=== PATIENT | male | born 1965 | race African-American/Black ===

== ENCOUNTER 2016-10-17 08:05 | Emergency (ER) | payer OTHER ==
[~2016-10-17] VITALS: Ht 177.8 cm; Wt 81.7 kg
[2016-10-17 08:11] VITALS: BP 125/95
[2016-10-17 08:29] LABS: ABSOLUTE NEUTROPHILS 3.2 thou/uL (1.4-8.2); BASOPHILS 0.4 % (0.0-2.0); EOSINOPHILS 2.3 % (0.0-3.0); HEMATOCRIT 46.9 % (42.0-52.0); HEMOGLOBIN 15.8 gm/dL (14.0-18.0); LYMPHOCYTES 40.3 % (24.0-44.0); MCH 27.7 pg (26.0-34.0); MCHC 33.6 g/dL (28.0-37.0); MCV 82.4 fL (80.0-100.0); MONOCYTES 7.7 % (1.0-8.0); PLATELET COUNT 190 thou/uL (150-400); POLYS 49.3 % (36.0-66.0); RBC 5.69 mil/uL (4.50-6.00); RDW 13.6 % (10.5-14.5); WBC 6.4 thou/uL (4.0-11.0)
[2016-10-17 08:32] LABS: MANUAL DIFF NO
[2016-10-17 08:38] LABS: CALCIUM 9.3 mg/dL (8.5-10.1)
== END 2016-10-17 09:01 | disposition home or self-care (01) ==
LOC: ER 08:05
PROVIDERS: Emergency Medicine
DX: M62.838 Other muscle spasm (principal)

== ENCOUNTER 2018-03-06 14:01 | Emergency (ER) | payer OTHER ==
[~2018-03-06] VITALS: Ht 180.3 cm; Wt 81.7 kg
--- NOTE | ~2018-03-06 | EKG ---
[address] [address] ELECTROCARDIOGRAM REPORT Name: DENISHA KUO Room #: DEP KERMIT Allen#: [id number] Admission: 03/06/18 Attend Phys: Discharge: 03/06/18 Date of : 69 Report #: [id number] THIS REPORT FOR: //name// [facility] ED Test Date: 2018-03-06 Test Time: 14:35:14 Pat Name: DENISHA KUO Department: Room: Gender: M [employer] Driver: ELIZABETH : 1965 Requested By: Live Raza Order Number: [id number] MD: Magno Rudolph Measurements Intervals Wilson Rate: 54 P: 60 CO: 192 QRS: 43 QRSD: 86 T: 41 QT: 423 QTc: 401 Interpretive Statements Sinus rhythm No previous ECG available for comparison Electronically Signed On 03-06-2018 23:11:17 CDT by Magno Rudolph [email or web address] <ELECTRONICALLY SIGNED> By: Magno Rudolph MD 03/06/18 2311 1435 1435 Magno Rudolph MD /DANIEL
[2018-03-06 14:37] LABS: ABSOLUTE NEUTROPHILS 3.3 thou/uL (1.4-8.2); BASOPHILS 0.4 % (0.0-2.0); EOSINOPHILS 1.2 % (0.0-3.0); HEMATOCRIT 45.4 % (42.0-52.0); HEMOGLOBIN 15.6 gm/dL (14.0-18.0); LYMPHOCYTES 43.6 % (24.0-44.0); MCH 28.3 pg (26.0-34.0); MCHC 34.4 g/dL (28.0-37.0); MCV 82.3 fL (80.0-100.0); MONOCYTES 8.5 % (1.0-8.0); PLATELET COUNT 196 thou/uL (150-400); POLYS 46.3 % (36.0-66.0); RBC 5.52 mil/uL (4.50-6.00); RDW 13.8 % (10.5-14.5); WBC 7.2 thou/uL (4.0-11.0)
[2018-03-06 14:40] LABS: ANION GAP 6 mmol/L (7-16); BUN 19 mg/dL (7-18); CALCIUM 9.4 mg/dL (8.5-10.1); CHLORIDE 103 mmol/L (98-107); CO2 27 mmol/L (21-32); CREATININE 1.1 mg/dL (0.7-1.3); GLUCOSE 95 mg/dL (74-106); SODIUM 136 mmol/L (136-145)
[2018-03-06 14:49] LABS: ALBUMIN 3.7 g/dL (3.4-5.0); LIPASE 92 U/L (73-393); SGOT 22 U/L (15-37); SGPT 33 U/L (30-65); TOTAL BILIRUBIN 0.7 mg/dL (<0.1-1.0); TOTAL PROTEIN 7.9 g/dL (6.4-8.2); TROPONIN-I <0.06 ng/mL (<0.06)
[2018-03-06 15:06] LABS: URINE BILIRUBIN NEGATIVE (Negative); URINE BLOOD NEGATIVE (Negative); URINE CLARITY CLEAR; URINE COLOR YELLOW; URINE GLUCOSE-RANDOM* NEGATIVE (Negative); URINE KETONES NEGATIVE (Negative); URINE LEUKOCYTES-REFLEX NEGATIVE (Negative); URINE NITRITE-REFLEX NEGATIVE (Negative); URINE PROTEIN (DIPSTICK) NEGATIVE (Negative); URINE SPECIFIC GRAVITY >= 1.030 (1.005-1.035); URINE UROBILINOGEN 0.2 E.U./dl (0.2-1.0)
[2018-03-06] MEDS ORDERED: LEVSIN-SL0.125 MG PO (16:01)
[2018-03-06 16:15] VITALS: BP 136/83
== END 2018-03-06 16:16 | disposition home or self-care (01) ==
LOC: ER 14:01
PROVIDERS: Physician Assistant
DX: R10.32 Left lower quadrant pain (principal)

== ENCOUNTER 2020-08-06 13:27 | Emergency (ER) | payer OTHER ==
[~2020-08-06] VITALS: Ht 182.9 cm; Wt 81.7 kg
[~2020-08-06 13:27] MED LIST: LEVSIN-SL0.125 MG PO
[2020-08-06] MEDS ORDERED: NORCO5 PO (15:45)
[2020-08-06 15:47] VITALS: BP 146/103
== END 2020-08-06 15:45 | disposition home or self-care (01) ==
LOC: ER 13:27
DX: S60.212A Contusion of left wrist, initial encounter (principal); S50.02XA Contusion of left elbow, initial encounter; W22.8XXA Striking against or struck by other objects, initial encounter; Y93.89 Activity, other specified; Y92.89 Other specified places as the place of occurrence of the external cause; Y99.8 Other external cause status